=== PATIENT | female | born 1960 | race Hispanic/Latino ===

== ENCOUNTER 2016-11-28 03:14 | Emergency (ER) | payer MEDICARE, OTHER ==
[2016-11-28 03:20] VITALS: BP 147/87; PULSE 100; RESP 18; TEMP 97.9; O2SAT 97
--- NOTE | 2016-11-28 03:34 | C.PDOC ---
History Of Present Illness patient states she might have twisted her back at work, and now complains of back pain, worsening with movement and ambulation. No f/c/n/v. No incontinence. Did not take anything to alleviate the pain Time Seen by Provider: 11/28/16 03:34 Chief Complaint (Nursing): Back Pain History/Exam Limitations: no limitations Onset/Duration Of Symptoms: Days Current Symptoms Are (Timing): Still Present Quality Of Discomfort: Dull, Aching Severity: Moderate Pain Scale Rating Of: 4 Previous Symptoms: Back Pain Associated Symptoms: None Exacerbating Factor(s): Turning, Movement Recent travel outside of the [place]: No Additional History Per: Patient Past Medical History Reviewed: Historical Data, Nursing Documentation, Vital Signs Vital Signs: Last Vital Signs Temp 97.9 F 11/28/16 03:16 Pulse 100 H 11/28/16 03:16 Resp 18 11/28/16 03:16 BP 147/87 11/28/16 03:16 Pulse Ox 97 11/28/16 03:40 - Medical History PMH: Arthritis (KNEES), Hypothyroidism Family History: States: No Known Family Hx - Social History Hx Alcohol Use: No Hx Substance Use: No - Immunization History Hx Tetanus Toxoid Vaccination: No Review Of Systems Constitutional: Negative for: Fever, Chills Cardiovascular: Negative for: Chest Pain Respiratory: Negative for: Shortness of Breath Gastrointestinal: Negative for: Nausea, Vomiting Musculoskeletal: Positive for: Back Pain Skin: Negative for: Rash, Lesions, Jaundice, Bruising Neurological: Negative for: Weakness Psych: Negative for: Anxiety Physical Exam - Physical Exam Appears: Non-toxic, No Acute Distress Skin: Warm, Dry Chest: Symmetrical, Tenderness (left subscapular area) Cardiovascular: Rhythm Regular Respiratory: No Rales, No Rhonchi, No Wheezing Gastrointestinal/Abdominal: Soft, No Tenderness, No Distention Extremity: Bilateral: Atraumatic, Normal Color And Temperature Neurological/Psych: Oriented x3, Normal Speech, Normal Cognition Gait: Steady ED Course And Treatment O2 Sat by Pulse Oximetry: 97 Pulse Ox Interpretation: Normal Reevaluation Time: 04:40 Reassessment Condition: Improved Medical Decision Making Medical Decision Making: Upon provider reevaluation patient is feeling better, is medically stable, and requires no further treatment in the ED at this time. Patient will be discharged home with Rx for tramadol . Counseling was provided and all questions were answered regarding diagnosis and need for follow up with the referred clinic. There is agreement to discharge plan. Return if symptoms persist or worsen. Disposition Counseled Patient/Family Regarding: Studies Performed, Diagnosis, Need For Followup, Rx Given - Disposition Referrals: Clementine Espinal MD [Medical Doctor] - Disposition: HOME/ ROUTINE Disposition Time: 03:34 Condition: FAIR Additional Instructions: Please follow up with workman's comp doctor Prescriptions: traMADol [Ultram] 50 mg PO TID PRN #15 tab PRN Reason: Pain, Moderate (4-7) Instructions: Back Pain (ED) Forms: Work Excuse - Clinical Impression Clinical Impression: Thoracic back pain
[2016-11-28] MEDS ORDERED: Oxycodone/Acetaminophen 5/325 mg Tab PO STA (04:45)
[2016-11-28] MEDS ORDERED: Oxycodone/Acetaminophen 5/325 mg Tab ONE (04:49)
== END 2016-11-28 04:54 | disposition home or self-care (01) ==
LOC: C.ER 03:14
DX: M54.6 Pain in thoracic spine (principal)

== ENCOUNTER 2018-11-08 08:52 | Outpatient (CLI) | payer MEDICARE, OTHER | END 2018-11-08 08:53 | disposition home or self-care (01) | LOC: C.DEXAIC 08:52 ==